=== PATIENT | female | born 2000 | race Caucasian/White ===

== ENCOUNTER → 2018-08-30 | Outpatient (CLI) | payer MEDICAID ==
--- NOTE | 2018-08-30 14:31 | Diagnostic Imaging Report ---
INDICATION: survey. TECHNIQUE: Multiple real-time grayscale images were obtained over the gravid uterus. COMPARISON: None FINDINGS: There is a single live fetus in a variable presentation. The heart rate was recorded at 156 beats per minute. Placenta is fundal. Amniotic fluid volume is normal. Cervical length is 4.4 cm. kidneys, bladder and stomach are unremarkable. brain is unremarkable. There is a four-chamber heart. There is a three-vessel cord with normal insertion. spine is grossly unremarkable. Biometrical measurements are as follows: Biparietal 4.95CM cm, age 21 weeks 0 days. Head circumference 18.4CM cm, age 20 weeks 6 days. Abdominal circumference 15.82CM cm, age 21 weeks 0 days. Femur length 3.22CM cm, age 20 weeks 1 days. Sonographic estimate age: 20 weeks 6 days. Sonographic estimated date of delivery: 01/11/2019. Estimated Weight: 363 gm (+/- 53G gm). LMP percentile: 78%. heart rate: 156 beats per minute. number: 1 of 1. IMPRESSION: Single live IUP 20 weeks 6 days gestational age with an estimated date of confinement sonographically of 01/11/2019. survey is unremarkable. Dictated by: Dictated on workstation # [id number]
== END ==
LOC: RAD 11:28
PROVIDERS: ATTEND Obstetrics & Gynecology
DX: Z36.89 Encounter for other specified antenatal screening (principal); Z3A.20 20 weeks gestation of pregnancy
CPT/HCPCS: 76805